=== PATIENT | female | born 1950 | race Caucasian/White ===

== ENCOUNTER 2017-10-26 10:52 | Outpatient (CLI) | payer MEDICARE ==
--- NOTE | 2017-10-26 12:58 | RAD ---
THORACIC SPINE 3 VIEWS: HISTORY: Back pain and left shoulder pain. FINDINGS: The bones appear demineralized. The vertebral body maintained normal height. There are degenerative osteophytes present. IMPRESSION: Osteopenia and arthritic changes of the spine. POS: [facility]
--- NOTE | 2017-10-26 12:59 | RAD ---
CERVICAL SPINE SERIES 3 VIEWS: HISTORY: Neck and left shoulder pain. FINDINGS: Vertebral bodies are normal in height. At C3-4, C4-5, C5-6, C6-7, and C7-T1 degenerative facet hanna es are noted. Carotid bulb calcifications are noted. IMPRESSION: Moderate arthritic changes of the spine. POS: [facility]
== END 2017-10-26 10:53 | disposition home or self-care (01) ==
LOC: SCSRAD 10:52
PROVIDERS: ATTEND Family Medicine
DX: M54.9 Dorsalgia, unspecified (principal); M81.0 Age-related osteoporosis without current pathological fracture; M47.892 Other spondylosis, cervical region; M47.894 Other spondylosis, thoracic region; M85.88 Other specified disorders of bone density and structure, other site
CPT/HCPCS: 72040; 72072

== ENCOUNTER 2018-12-02 14:53 | Emergency (ER) | payer MEDICARE ==
[2018-12-02 15:37] LABS: #Basophils 0.1 thou/uL (0.0-0.2); #Eosinphils 0.1 thou/uL (0.0-0.7); #Lymphocytes 1.6 thou/uL (1.20-3.40); #Monocytes 0.7 thou/uL (0.11-0.59); #Neutrophils 5.4 thou/uL (1.40-6.50); %Basophils 1.4 % (0.0-1.0); %Eosinophils 1.9 % (0.0-10.0); %Lymphocytes 19.9 % (21.0-51.0); %Monocytes 8.5 % (0.0-10.0); %Neutrophils 68.4 % (42.0-75.0); Hemoglobin 14.3 g/dL (12.0-16.0); Mean Corpuscular HGB CONC 33.7 g/dL (32.0-36.0); Mean Corpuscular Hemoglobin 32.5 pg (27.0-31.0); Mean Corpuscular Volume 96.5 fL (78.0-98.0); Mean Platelet Volume 6.5 fL (7.4-10.4); Platelet Count 247 thou/uL (130-400); RBC Distribution Width 11.5 % (11.5-14.5); White Blood Cell (WBC) Count 7.9 thou/uL (4.8-10.8)
--- NOTE | 2018-12-02 16:00 | RAD ---
TWO VIEWS OF THE CHEST 12/02/18 COMPARISON: None. HISTORY: Congestion and cough for two weeks. FINDINGS: Two views of the chest show normal sized cardiomediastinal silhouette. There is no evidence of consol idation, mass, or pleural effusion. The bones are unremarkable. IMPRESSION: No evidence of acute cardiopulmonary disease. POS: [facility]
[2018-12-02 16:03] LABS: ALT (SGPT) 45 U/L (8-55); AST (SGOT) 27 U/L (5-34); Albumin 4.2 g/dL (3.4-4.8); Alkaline Phosphatase 93 U/L (40-150); Anion Gap 14 mmol/L (10-20); BUN (Urea Nitrogen) 16 mg/dL (9.8-20.1); Bilirubin, Total 0.4 mg/dL (0.2-1.2); Calc. Creatinine Clearance 0 mL/min (70-130); Calcium 9.5 mg/dL (7.8-10.44); Carbon Dioxide 24 mmol/L (23-31); Chloride 105 mmol/L (98-107); Estimated GFR-MDRD 71; Globulin 3.1 g/dL (2.4-3.5); Glucose 93 mg/dL (80-115); Potassium 3.7 mmol/L (3.5-5.1); Protein, Total 7.3 g/dL (6.0-8.3); Sodium 139 mmol/L (136-145)
== END 2018-12-02 17:21 | disposition home or self-care (01) ==
LOC: ERS 14:53
DX: R05 Cough (principal); R09.81 Nasal congestion; E78.5 Hyperlipidemia, unspecified; I10 Essential (primary) hypertension; Z87.891 Personal history of nicotine dependence
CPT/HCPCS: 36415; 71046; 80053; 85025; 87804; 94640; J7620